=== PATIENT | female | born 1990 | race Two or more races ===

== ENCOUNTER 2019-08-05 17:58 | Inpatient (IN) | payer MEDICAID ==
[~2019-08-05] VITALS: Ht 157.5 cm; Wt 51.3 kg
[2019-08-05] MEDS ORDERED: ONDANSETRON HCL 4MG/2ML INJ ONE (18:31)
[2019-08-05] MEDS ORDERED: ONDANSETRON HCL 4MG/2ML INJ IV STA ×2 (18:45→20:26)
[2019-08-05] MEDS ORDERED: SODIUM CHLORIDE 0.9% 1,000 ML IV ONE (18:45)
[2019-08-05] MEDS ORDERED: MORPHINE SULFATE 4 MG/ML CPJ (NOT FOR IM USE) IV STA ×2 (18:45→20:26)
[2019-08-05 19:20] LABS: INR 1.1; PROTHROMBIN TIME 10.9 sec (9.6-11.0)
[2019-08-05 19:32] LABS: HEMATOCRIT. 31.4 % (36.0-48.0); HEMOGLOBIN. 9.4 g/dL (12.0-16.0); MEAN CORPUSCULAR HEMOGLOBIN 17.3 pg (28.0-32.0); MEAN CORPUSCULAR VOLUME 57.8 fL (81.0-99.0); MEAN PLATELET VOLUME 9.1 fl (7.4-10.4); PLATELET 598 x1000/uL (130-400); RED BLOOD CELL COUNT 5.43 mill/uL (4.2-5.4); RED CELL DISTRIBUTION WIDTH 31.1 % (11.6-14.6)
[2019-08-05 19:37] LABS: CLARITY URINE CLEAR (CLEAR); COLOR URINE YELLOW (YELLOW); KETONES URINE TRACE (NEGATIVE); LEUKOCYTE ESTERASE URINE NEGATIVE (NEGATIVE); NITRITE URINE NEGATIVE (NEGATIVE); OCCULT BLOOD URINE 2+ (NEGATIVE); PROTEIN URINE TRACE (NEGATIVE); SPECIFIC GRAVITY URINE 1.022 (1.005-1.030)
[2019-08-05 20:12] LABS: NUCLEATED RED BLOOD CELLS 24 /100 WBC; PLATELET ESTIMATE INCREASED
[2019-08-05 21:11] LABS: CHLORIDE 106 mEq/L (98-107)
[2019-08-05] MEDS ORDERED: CEFTRIAXONE 1 G PREMIX 50 ML IV ONE (23:00)
[2019-08-05] MEDS ORDERED: IOHEXOL-300 100 ML BOTTLE ONE (23:35)
[2019-08-06] MEDS ORDERED: FOLI-43 MT (03:32)
[2019-08-06] MEDS ORDERED: HYDR500C18 PO (03:33)
[2019-08-06] MEDS ORDERED: RANI150T7 PO (03:34)
[2019-08-06 03:40] VITALS: BP 101/62
[2019-08-06 04:00] VITALS: BP_SYST 101; BP_SYST 123; BP_DIAS 59; BP_DIAS 75
[2019-08-06] MEDS: KETOROLAC 30MG/ML VIAL IV PRN ×3 (05:08→22:20)
[2019-08-06 08:00] VITALS: BP 93/51
[2019-08-06] MEDS: ACETAMINOPHEN 325MG TABLET PO PRN ×2 (09:51→20:13)
[2019-08-06] MEDS ORDERED: INFLUENZA VIRUS VACCINE(AFLURIA) 0.5ML SYR IM ONE (10:00)
[2019-08-06 12:00] VITALS: BP_SYST 122; BP_SYST 96; BP_DIAS 56; BP_DIAS 80
[2019-08-06 12:38] LABS: HEMATOCRIT. 29.2 % (36.0-48.0); MEAN CORPUSCULAR HEMOGLOBIN 17.7 pg (28.0-32.0); MEAN CORPUSCULAR VOLUME 57.6 fL (81.0-99.0); MEAN PLATELET VOLUME 8.8 fl (7.4-10.4); PLATELET 555 x1000/uL (130-400); RED BLOOD CELL COUNT 5.08 mill/uL (4.2-5.4)
[2019-08-06 12:47] LABS: CHLORIDE 107 mEq/L (98-107)
[2019-08-06] MEDS: SODIUM CHLORIDE 0.9% 1,000 ML IV SCH (12:54)
[2019-08-06 16:00] VITALS: BP 103/65
[2019-08-06 20:00] VITALS: BP 119/65
[2019-08-06 20:56] LABS: NUCLEATED RED BLOOD CELLS 27 /100 WBC
[2019-08-06 20:57] LABS: PLATELET ESTIMATE INCREASED
[2019-08-06] MEDS ORDERED: CEFTRIAXONE 1,000 MG in DEXTROSE 5% WATER 50 ML IV SCH (23:00)
[2019-08-06] MEDS ORDERED: CEFTRIAXONE 1 G PREMIX 50 ML IV SCH (23:00)
[2019-08-06] MEDS: ONDANSETRON HCL 4MG/2ML INJ IV PRN (23:47)
[2019-08-07] VITALS: BP 109/60
[2019-08-07 04:20] VITALS: BP 110/62
[2019-08-07] MEDS: ONDANSETRON HCL 4MG/2ML INJ IV PRN (05:48)
[2019-08-07] MEDS: KETOROLAC 30MG/ML VIAL IV PRN (06:24)
[2019-08-07 08:00] VITALS: BP 99/56
[2019-08-07] MEDS: SODIUM CHLORIDE 0.9% 1,000 ML IV SCH (08:43)
[2019-08-07] MEDS ORDERED: MORPHINE SULFATE 2 MG/ML CPJ (NOT FOR IM USE) IV PRN (08:45)
[2019-08-07] MEDS ORDERED: HYDR-4001 MT (12:50)
[2019-08-07] MEDS ORDERED: ONDA4TAB5 MT (12:50)
[2019-08-07 13:21] VITALS: BP 101/61
== END 2019-08-07 16:00 | disposition home or self-care (01) | DRG 465 ==
LOC: ER 17:58 → 5WST 08-06 00:24 → ENRESERV 08-06 01:23
PROVIDERS: ADMIT Internal Medicine; ATTEND Internal Medicine
DX: N20.0 Calculus of kidney (principal); D56.1 Beta thalassemia; Z90.81 Acquired absence of spleen; N83.202 Unspecified ovarian cyst, left side; N39.0 Urinary tract infection, site not specified
CPT/HCPCS: 36415; 74177; 76830; 76856; 76857; 80048; 81003; 90686; 93005; 93970; 96374; 99285; J0696; J1885; J2270; J2405; J7030; J7060; Q9967